=== PATIENT | male | born 1975 | race Asian ===

== ENCOUNTER → 2016-12-13 | Emergency (ER) | payer BC, OTHER ==
[~2016-12-13] VITALS: Ht 180.3 cm; Wt 99.0 kg
[~2016-12-13] MED LIST: HYDR-906 PO; HYDROCODONE/APAP (5/325) TAB PO ONE; IBUP-1542 PO; KETOROLAC 60 MG INJ IM STA
[2016-12-13 18:54] VITALS: Ht 180.3 cm; Wt 99.0 kg
[2016-12-13 20:03] LABS: URINE BLOOD (Dip) POC 1+ (NEGATIVE)
--- NOTE | 2016-12-13 20:53 | RADRPT ---
PROCEDURE: X-ray lumbar spine CLINICAL INDICATION: Lumbar spine pain TECHNIQUE: 3 views lumbar spine COMPARISON: None. FINDINGS: Mild anterior wedging likely present at 11 T12, otherwise age indeterminate nonspecific. Small supe rior endplate osteophytes at the L4 and L5 levels. Disk spaces are substantially preserved. No acu te fracture or dislocation. IMPRESSION: Mild degenerative changes, without acute fracture. RPTAT: [facility] Physician Anders Date Time Electronically viewed and signed by Tanika Stern Physician on 12/13/2016 20:53 RS/
--- NOTE | 2016-12-13 21:22 | RADRPT ---
PROCEDURE: US Renal CLINICAL INDICATION: Hematuria TECHNIQUE: Multiple sonographic images of the kidneys and bladder were obtained. Evaluation of th e kidneys and bladder was performed as well with fall scale and color and Doppler evaluation using a curved array transducer. The images were reviewed on a high-resolution PACS workstation. COMPARISON: No prior studies are available for comparison. FINDINGS: The right kidney measures 10.3 cm in length. The left kidney measures 11.7 there is a focal area of increased echotexture at the inferior pole right kidney measuring 0.7 cm in diameter suspicious for a nonobstructing nephrolith. The kidneys are otherwise unremarkable with no mass or hydronephrosis evident. The bladder is suboptimally distended but otherwise unremarkable with no dilated distal ureter evide nt. IMPRESSION: 1. Normal size kidneys without hydronephrosis. 2. A 7 mm echogenic focus is seen within the inferior pole of the right kidney suspicious for a non obstructing nephrolith. 3. The bladder is suboptimally distended. Physician Julienne Date Time Electronically viewed and signed by Physician Julienne on 12/13/2016 21:22 /
--- NOTE | 2016-12-13 21:29 | ERD ---
ER Documentation Chief Complaint Date/Time DATE: 12/13/16 TIME: 21:27 Chief Complaint right flank pain x 1 day HPI This 41-year-old male complains of right lower back pain for last day. He denies hematuria, dysuria, fevers. Denies any weakness or bowel or bladder incontinence. Patient had minor awkward movement without fall or significant trauma. ROS All systems reviewed and are negative except as per history of present illness. Medications Home Meds Active Scripts Ibuprofen* (Motrin*) 600 Mg Tab, 600 MG PO Q6, #20 TAB Prov:NICOLAS BERMUDEZ MD 12/13/16 Hydrocodone/Acetaminophen ([place] 5-325 Tablet) 1 Each Tablet, 1 TAB PO Q6H Y for PAIN, #16 TAB Prov:NICOLAS BERMUDEZ MD 12/13/16 Allergies Allergies: Coded Allergies: No Known Drug Allergies (Verified Allergy, Unknown, 12/13/16) PMhx/Soc History of Surgery: Yes (RIGHT ARM) Anesthesia Reaction: No Hx Neurological Disorder: No Hx Respiratory Disorders: No Hx Cardiac Disorders: No Hx Psychiatric Problems: No Hx Miscellaneous Medical Probl: No Hx Alcohol Use: No Hx Substance Use: No Hx Tobacco Use: No Smoking Status: Never smoker Physical Exam Vitals Vital Signs Date Time Temp Pulse Resp B/P Pulse Ox O2 Delivery O2 Flow Rate FiO2 12/13/16 18:54 99.3 74 20 130/80 97 Physical Exam Const: [] Alert, [id number]. Head: Atraumatic Eyes: Normal Conjunctiva ENT: Normal External Ears, Nose and Mouth. Neck: Full range of motion..~ No meningismus. Resp: Clear to auscultation bilaterally Cardio: Regular rate and rhythm, no murmurs Abd: Soft, non tender, non distended. Normal bowel sounds Skin: No petechiae or rashes Back: No midline or flank tenderness. Tenderness in the right L2-L3 paraspinous muscles. There is mild tenderness extending to the right buttock as well. No exquisite flank tenderness and no abdominal pain. Patient is mildly positive straight leg raise. Ext: No cyanosis, or edema Neur: Awake and alert Psych: Normal Mood and Affect Results 24 hrs Laboratory Tests Test 12/13/16 20:07 Bedside Urine Blood 1+ Bedside Urine Glucose (UA) Negative Bedside Urine Ketones (LAB) Negative Bedside Urine Leukocyte Esterase (L Negative Bedside Urine Nitrite (LAB) Negative Bedside Urine Protein (LAB) Trace Bedside Urine pH (LAB) 6.0 Current Medications Medications (Trade) Dose Ordered Sig/Lena Route PRN Reason Start Time Stop Time Status Last Admin Dose Admin Ketorolac Tromethamine (Toradol) 60 mg ONCE STAT IM 12/13/16 19:36 12/13/16 19:38 DC 12/13/16 20:14 Acetaminophen/ Hydrocodone Bitart ([place] (5/325)) 1 tab ONCE ONCE PO 12/13/16 20:00 12/13/16 20:01 DC 12/13/16 20:14 Procedures/MDM Urine shows 1+ hemoglobin without leukocytes, nitrites or glucose. X-ray LS-Spine 3V Interpreted by me: Bones: No fracture, or lytic lesions Joints: No dislocation Foreign body: None impression-degenerative changes lumbar spine Given the hematoma globin and urine renal ultrasound was obtained which showed a 7 mm undescended the right kidney. There is no evidence of hydronephrosis. Patient presents with acute low back pain which is consistent with muscular skeletal low back pain although he does have a kidney stone in his right kidney which is undescended. Renal colic is certainly possible. Patient will be treated with Romulus and ibuprofen instructions for clear fluids and instructions to follow-up with his primary doctor. Patient should return for fevers, vomiting, new worsening symptoms. There is no evidence to suggest septic stone , acute abdomen. The patient was stable with no new complaints during the ER course. Clinically, there is no current evidence to suggest meningitis, sepsis, acute abdomen, pneumonia, acute coronary syndrome, pulmonary embolism, or any other emergent condition appearing to require further evaluation or hospitalization. The patient should certainly return for any new or worsening symptoms per the aftercare instructions. They should otherwise follow-up with her primary care doctor for reevaluation this week. Departure Diagnosis: Primary Impression: Back pain Back pain location: low back pain Chronicity: acute Back pain laterality: right Sciatica presence: with sciatica Sciatica laterality: sciatica of right side Qualified Code: M54.41 - Acute right-sided low back pain with right -sided sciatica Additional Impression: Flank pain Condition: Stable Patient Instructions: Flank Pain, Uncertain Cause, Back Pain W/ Sciatica Additional Instructions: Symptoms suggestive of musculoskeletal back pain although there is a kidney stone which is understand of the right kidney. Recheck for fevers, vomiting, new worsening symptoms. Drink plenty of fluids at home. See primary doctor for follow-up. NICOLAS BERMUDEZ MD Dec 13, 2016 21:29
[2016-12-13 21:53] VITALS: BP 119/79; PULSE 69; RESP 18; TEMP 98.7
== END | disposition home or self-care (01) ==
LOC: FTE 18:42
DX: S39.92XA Unspecified injury of lower back, initial encounter (principal); S39.91XA Unspecified injury of abdomen, initial encounter; X50.1XXA Overexertion from prolonged static or awkward postures, initial encounter; Y92.9 Unspecified place or not applicable
CPT/HCPCS: 72100; 76775; 81003; 96372; 99285; J1885; Z7610

== ENCOUNTER 2019-02-19 18:30 | Emergency (ER) | payer BC, OTHER ==
[~2019-02-19] VITALS: Ht 180.3 cm; Wt 99.2 kg
[~2019-02-19 18:30] MED LIST changes: +HYDR-4011 PO; -HYDR-906 PO; -HYDROCODONE/APAP (5/325) TAB PO ONE; -KETOROLAC 60 MG INJ IM STA
[2019-02-19 19:15] VITALS: Ht 180.3 cm; Wt 99.2 kg
[2019-02-19] MEDS ORDERED: KETOROLAC 30 MG INJ IM STA (22:36)
--- NOTE | 2019-02-19 22:40 | ERD ---
ER Documentation Chief Complaint Chief Complaint low back pain x 1 day, hx of chronic back pain HPI 44-year-old male, with history of chronic back pain, presents to the emergency department, complaining of acute exacerbation of back pain that started 1 day ago. No recent history of trauma. The pain is sharp, constant, worsened by lateral rotation and flexion, 7/10. The patient denies distal weakness, numbness or tingling. No rashes, no fever or chills, no incontinence. No medications taken for pain at this time. ROS All systems reviewed and are negative except as per history of present illness. Medications Home Meds Active Scripts Baclofen* (Baclofen*) 10 Mg Tablet, 10 MG PO QHS PRN for MUSCLE SPASMS, #10 TAB Prov:EPHRAIM CASTELLANOS MD 02/19/19 Ibuprofen* (Motrin*) 400 Mg Tab, 400 MG PO Q6H PRN for PAIN AND OR ELEVATED TEMP, #30 TAB Prov:EPHRAIM CASTELLANOS MD 02/19/19 Hydrocodone/Acetaminophen ([place] 5-325 Tablet) 1 Each Tablet, 1 TAB PO BID PRN for PAIN, #10 TAB Prov:EPHRAIM CASTELLANOS MD 02/19/19 Ibuprofen* (Motrin*) 600 Mg Tab, 600 MG PO Q6, #20 TAB Prov:NICOLAS BERMUDEZ MD 12/13/16 Hydrocodone/Acetaminophen ([place] 5-325 Tablet) 1 Each Tablet, 1 TAB PO Q6H PRN for PAIN, #16 TAB Prov:NICOLAS BERMUDEZ MD 12/13/16 Allergies Allergies: Coded Allergies: No Known Drug Allergies (Verified Allergy, Unknown, 12/13/16) PMhx/Soc History of Surgery: Yes (RIGHT ARM) Anesthesia Reaction: No Hx Neurological Disorder: No Hx Respiratory Disorders: No Hx Cardiac Disorders: No Hx Psychiatric Problems: No Hx Miscellaneous Medical Probl: No Hx Alcohol Use: No Hx Substance Use: No Hx Tobacco Use: No Smoking Status: Never smoker FmHx Family History: No diabetes, No coronary disease Physical Exam Vitals Vital Signs Date Temp Pulse Resp B/P (MAP) Pulse Ox O2 O2 Flow FiO2 Time Delivery Rate 02/19/19 98.2 66 18 115/77 98 19:15 (90) Physical Exam Patient is in no acute distress, vital signs stable. Alert and fully oriented. EYES: PERRLA, EOMI, Sclera and conjunctiva appear normal. EARS: Canals clear, tympanic membranes WNL THROAT: Normal oropharynx. NECK: Supple, No lymphadenopathy. Full ROM without pain or tenderness. HEART: RRR, no rubs, murmurs, clicks or gallops. LUNGS: Clear to auscultation. ABDOMEN: Soft, non-tender without masses or hepatosplenomegaly. EXTREMITIES: No edema bilaterally. BACK: Normal inspection, no bruises, no rashes, no deformity, decreased range of motion for lateral rotation and flexion. No vertebral tenderness, bilateral lower muscle spasm. NEURO: Cranial nerves grossly intact, no motor or sensory deficit Results 24 hrs Current Medications Medications Dose Sig/Lena Start Time Status Last (Trade) Ordered Route PRN Stop Time Admin Dose Reason Admin Ketorolac 30 mg ONCE STAT 02/19/19 DC Tromethamine IM 22:36 (Toradol) 02/19/19 22:39 1 tab ONCE ONCE 02/19/19 Acetaminophen PO 23:00 / 02/19/19 23:01 Hydrocodone Bitart ([place] (5/325)) Procedures/MDM At the time of discharge, patient nontoxic, ambulating, vital signs stable, no gross neurologic deficit. differential diagnosis include but not limited to: lumbar sprain/strain, sciatica, herniated disk, UTI less likely pyelo, kidney stone. Neurovascular exam grossly intact. no clinical findings suggestive of acute infectious process, no acute deformity, no edema, no rashes. Physical examination and clinical presentation consistent most likely with acute on chronic back pain with sciatica. During the ED course the patient received treatment with Toradol IM presenting overall improvement of the symptoms. Results and clinical impression discussed with the patient who agrees with management. The patient is stable to be treated outpatient and will be discharged home with recommendations and close monitoring The patient was informed that the evaluation in the emergency department has been done to rule out an acute emergency, therefore, chronic conditions like mal ignancy or autoimmune diseases have not been evaluated; therefore, the patient was instructed to follow up with the primary care provider in the next 48h. If symptoms persist, worsen or new symptoms develop, then patient should return to the ED immediately. Instructions explained and given to patient with acknowledgment and demonstrated understanding. Disclaimer: Inadvertent spelling and grammatical errors are likely due to EHR/dictation software use and do not reflect on the overall quality of patient care. Also, please note that the electronic time recorded on this note does not necessarily reflect the actual time of the patient encounter. Departure Diagnosis: Primary Impression: Acute exacerbation of chronic low back pain Condition: Stable Additional Instructions: Thank you very much for allowing us to participate in your care. Your health and safety is our top priority at [facility]. The evaluation in the emergency department has been done to rule out an acute emergency, therefore, chronic conditions like malignancy or other diseases have not been evaluated; therefore, you need to follow up with a primary care provider in the next 48h. If symptoms persist, worsen or new symptoms develop, then patient should return to the ED immediately. Call your primary care doctor TOMORROW for an appointment during the next 2-4 days and bring all the information provided. Have prescriptions filled and follow precisely the directions on the label. If the symptoms get worse and your provider is unavailable, return to the Emergency Department immediately. EPHRAIM CASTELLANOS MD February 19, 2019 22:40
[2019-02-19] MEDS ORDERED: BACL10TA PO (22:42)
[2019-02-19] MEDS ORDERED: IBUP-1561 PO (22:42)
[2019-02-19] MEDS ORDERED: HYDR-4011 PO (22:42)
[2019-02-19] MEDS ORDERED: HYDROCODONE/APAP (5/325) TAB PO ONE (23:00)
[2019-02-19 23:56] VITALS: BP 120/82; PULSE 77; RESP 19
== END 2019-02-19 23:56 | disposition home or self-care (01) ==
LOC: FTE 18:30
DX: M54.5 Low back pain (principal)
CPT/HCPCS: 96372; J1885; Z7502; Z7610

== ENCOUNTER 2019-04-15 18:46 | Emergency (ER) | payer OTHER ==
[~2019-04-15] VITALS: Ht 177.8 cm; Wt 97.2 kg
[~2019-04-15 18:46] MED LIST changes: +BACL10TA PO; +IBUP-1561 PO
[2019-04-15 18:53] VITALS: Ht 177.8 cm; Wt 97.2 kg
[2019-04-15] MEDS ORDERED: ONDANSETRON 4 MG INJ IV STA (19:03)
[2019-04-15] MEDS ORDERED: SOD CHLORIDE 0.9% 1,000 ML IV STA ×2 (19:03→20:49)
[2019-04-15] MEDS ORDERED: ACETAMINOPHEN 500 MG TAB PO STA (19:03)
--- NOTE | 2019-04-15 19:04 | ERD ---
ER Documentation Chief Complaint Chief Complaint Vomiting and diarrhea with AP that started today HPI 44-year-old male presenting with complaints of vomiting and diarrhea that started today around 1 PM. This started after he had a meal at [employer]. He was initially having some abdominal cramping but states that his abdominal pain is now gone. He had multiple episodes of nonbloody diarrhea and nonbloody, nonbilious vomiting prior to arrival. Currently he is feeling a little better. He has no other complaints at this time. Denies any dysuria or hematuria. ROS All systems reviewed and are negative except as per history of present illness. Medications Home Meds Active Scripts Loperamide Hcl* (Imodium*) 2 Mg Capsule, 2 MG PO .AFTER EA LOOSE BM PRN for DIARRHEA, #10 TAB Prov:LEILA STATON MD 04/15/19 Ondansetron (Ondansetron Odt) 8 Mg Tab.rapdis, 8 MG PO Q6H PRN for NAUSEA AND/OR VOMITING, #10 TAB Prov:LEILA STATON MD 04/15/19 Ibuprofen* (Motrin*) 600 Mg Tab, 600 MG PO Q6H PRN for PAIN AND OR ELEVATED TEMP, #30 TAB Prov:LEILA STATON MD 04/15/19 Baclofen* (Baclofen*) 10 Mg Tablet, 10 MG PO QHS PRN for MUSCLE SPASMS, #10 TAB Prov:EPHRAIM CASTELLANOS MD 02/19/19 Ibuprofen* (Motrin*) 400 Mg Tab, 400 MG PO Q6H PRN for PAIN AND OR ELEVATED TEMP, #30 TAB Prov:EPHRAIM CASTELLANOS MD 02/19/19 Hydrocodone/Acetaminophen ([place] 5-325 Tablet) 1 Each Tablet, 1 TAB PO BID PRN for PAIN, #10 TAB Prov:EPHRAIM CASTELLANOS MD 02/19/19 Ibuprofen* (Motrin*) 600 Mg Tab, 600 MG PO Q6, #20 TAB Prov:NICOLAS BEMRUDEZ MD 12/13/16 Hydrocodone/Acetaminophen ([place] 5-325 Tablet) 1 Each Tablet, 1 TAB PO Q6H PRN for PAIN, #16 TAB Prov:NICOLAS BERMUDEZ MD 12/13/16 Allergies Allergies: Coded Allergies: No Known Drug Allergies (Verified Allergy, Unknown, 12/13/16) PMhx/Soc History of Surgery: Yes (RIGHT ARM) Anesthesia Reaction: No Hx Neurological Disorder: No Hx Respiratory Disorders: No Hx Cardiac Disorders: No Hx Psychiatric Problems: No Hx Miscellaneous Medical Probl: Yes (Diabetes) Hx Alcohol Use: Yes Hx Substance Use: No Hx Tobacco Use: No FmHx Family History: No coronary disease Physical Exam Vitals Vital Signs Date Temp Pulse Resp B/P (MAP) Pulse Ox O2 O2 Flow FiO2 Time Delivery Rate 04/15/19 102.7 21:05 04/15/19 102.1 19:22 04/15/19 101.1 122 16 138/89 100 18:53 (105) Physical Exam Const: No acute distress. Nontoxic Head: Atraumatic Eyes: Normal Conjunctiva ENT: Normal External Ears, Nose and Mouth. Neck: Full range of motion. No meningismus. Resp: Clear to auscultation bilaterally Cardio: Tachycardic with regular rhythm, no murmurs Abd: Soft, non tender, non distended. Negative Sweet sign. No McBurney's point tenderness. No rebound or guarding. No pulsatile mass. Normal bowel sounds Skin: No petechiae or rashes Back: No midline or flank tenderness Ext: No cyanosis, or edema Neur: Awake and alert Psych: Normal Mood and Affect Result Diagram: 04/15/19191904/15/191919 Results 24 hrs Laboratory Tests Test 04/15/19 19:07 04/15/19 19:20 Urine Color YELLOW Urine Clarity SLIGHTLY CLOUDY Urine pH 5.0 Urine Specific [place] 1.023 Urine Ketones TRACE mg/dL Urine Nitrite NEGATIVE mg/dL Urine Bilirubin NEGATIVE mg/dL Urine Urobilinogen NEGATIVE mg/dL Urine Leukocyte Esterase NEGATIVE Camilo/ul Urine Microscopic RBC 1 /HPF Urine Microscopic WBC 1 /HPF Urine Bacteria FEW /HPF Urine Mucus FEW /HPF Urine Hemoglobin 2+ mg/dL Urine Glucose NEGATIVE mg/dL Urine Total Protein 1+ mg/dl White Blood Count 10.4 10^3/ul Red Blood Count 5.41 10^6/ul Hemoglobin 15.2 g/dl Hematocrit 45.0 % Mean Corpuscular Volume 83.2 fl Mean Corpuscular Hemoglobin 28.1 pg Mean Corpuscular Hemoglobin Concent 33.8 g/dl Red Cell Distribution Width 12.8 % Platelet Count 326 10^3/UL Mean Platelet Volume 9.5 fl Immature Granulocytes % 0.500 % Neutrophils % 90.0 % Lymphocytes % 6.3 % Monocytes % 2.3 % Eosinophils % 0.4 % Basophils % 0.5 % Nucleated Red Blood Cells % 0.0 /100WBC Immature Granulocytes # 0.050 10^3/ul Neutrophils # 9.4 10^3/ul Lymphocytes # 0.7 10^3/ul Monocytes # 0.2 10^3/ul Eosinophils # 0.0 10^3/ul Basophils # 0.1 10^3/ul Nucleated Red Blood Cells # 0.0 10^3/ul Sodium Level 142 mmol/L Potassium Level 3.9 mmol/L Chloride Level 103 mmol/L Carbon Dioxide Level 26 mmol/L Anion Gap 13 Blood Urea Nitrogen 17 mg/dl Creatinine 0.96 mg/dl Est Glomerular Filtrat Rate mL/min > 60 mL/min Glucose Level 213 mg/dl POC Venous Lactate 2.2 mmol/L Calcium Level 9.6 mg/dl Total Bilirubin 0.5 mg/dl Direct Bilirubin 0.00 mg/dl Indirect Bilirubin 0.5 mg/dl Aspartate Amino Transf (AST/SGOT) 29 IU/L Alanine Aminotransferase (ALT/SGPT) 40 IU/L Alkaline Phosphatase 113 IU/L Total Protein 9.2 g/dl Albumin 4.8 g/dl Globulin 4.40 g/dl Albumin/Globulin Ratio 1.09 Lipase 126 U/L Current Medications Medications Dose Sig/Lena Start Time Status Last (Trade) Ordered Route PRN Stop Time Admin Dose Reason Admin Sodium 1,000 ml @ Q1H STAT 04/15/19 DC 04/15/19 Chloride 1,000 mls/hr IV 19:03 04/15/19 19:23 20:02 Ondansetron 4 mg ONCE STAT 04/15/19 DC 04/15/19 HCl (Zofran IV 19:03 04/15/19 19:22 Inj) 19:05 1,000 mg ONCE STAT 04/15/19 DC 04/15/19 Acetaminophen PO 19:03 04/15/19 19:22 (Tylenol 19:05 Tab) Ibuprofen 800 mg ONCE ONCE 04/15/19 DC 04/15/19 (Motrin) PO 21:00 04/15/19 21:05 21:01 Sodium 1,000 ml @ Q1H STAT 04/15/19 04/15/19 Chloride 1,000 mls/hr IV 20:49 04/15/19 21:07 21:48 Procedures/MDM EMERGENT LABS AND DIAGNOSTIC STUDIES: Lab Results above were reviewed and interpreted by me. CBC: no anemia or evidence of infection CMP: No evidence of clinically significant electrolyte abnormality, acidosis, renal failure, hypoglycemia, liver disease, or biliary obstruction Lipase: no evidence of pancreatitis Lactate within normal limits without evidence of sepsis or tissue hypoperfusion Initial Nursing notes reviewed. Previous Medical Records requested via the Electronic Health Record. EMERGENCY DEPARTMENT COURSE / MEDICAL DECISION MAKING: Patient is presenting with vomiting and diarrhea and associated fever with tachycardia. I suspect the tachycardia is most likely secondary to his high fever. He was treated with Tylenol initially as well as IV fluids. I have a low suspicion for serious bacterial infection, sepsis or septic shock. No evidence of acute surgical abdomen on exam. Upon reevaluation, patient continued to have a fever so he was given ibuprofen for this as well as additional IV fluids. His fever started to improve but he did remain slightly tachycardic due to persistent fever. Repeat abdominal exam reveals benign abdomen. I feel the patient is stable for discharge with antiemetics, antidiarrheals, and anti-inflammatories. Strict return precautions were discussed. I explained to the patient that he most likely has viral gastroenteritis. However encouraged to return for worsening condition. Patient and understand discharge plan. All questions answered. Patient's blood pressure was elevated (>120/80) but appears stable without evidence of hypertensive emergency or urgency. The patient was counseled about the risks of hypertension and urged to pursue outpatient monitoring and therapy within a week with their primary care physician. Departure Diagnosis: Primary Impression: Nausea, vomiting, and diarrhea Additional Impression: Gastroenteritis Condition: Stable LEILA STATON MD Apr 15, 2019 19:04
[2019-04-15] MEDS ORDERED: IBUP-1542 PO (20:59)
[2019-04-15] MEDS ORDERED: LOPE2CAP PO (20:59)
[2019-04-15] MEDS ORDERED: ONDA8TAB14 PO (20:59)
[2019-04-15] MEDS ORDERED: IBUPROFEN 800 MG TAB PO ONE (21:00)
[2019-04-15 22:00] VITALS: BP 102/66; PULSE 98; RESP 19
== END 2019-04-15 22:14 | disposition home or self-care (01) ==
LOC: E/R 18:46
DX: K52.9 Noninfective gastroenteritis and colitis, unspecified (principal); E11.9 Type 2 diabetes mellitus without complications
CPT/HCPCS: 36415; 80053; 81001; 83605; 83690; 85025; 96374; J2405; J7030; Z7502; Z7610